=== PATIENT | male | born 1955 | race Caucasian/White ===

== ENCOUNTER → 2019-10-30 | Outpatient (CLI) | payer BC ==
--- NOTE | 2019-10-30 11:16 | DRAGON STRESS TEST REPORT ---
Name: Prieto Sanders : 59 Date: 10/30/19 The patient underwent a stress/rest, single isotope SPECT Imaging with exercise stress and gated SPECT imaging for evaluation of CAD. The patient underwent treadmill exercise using the Don protocol, completing 8:30 minutes and completing an estimated workload of 10.1 metabolic equivalents (METS). The test was terminated due to fatigue. The heart rate was 60 beats per minute at baseline and increased to 150 beats at peak exercise, which was 94% of the maximum predicted heart rate. The rest blood pressure was 127/79 mm/Hg and increased decreased to 188/84 mm/Hg, which is a normal response. The patient complained of no ischemic symptoms during the procedure. The resting electrocardiogram demonstrated NSR with early repol and did not show ST-segment changes consistent with ischemia. Myocardial perfusion imaging was performed at rest following the injection of 10.75mCi of sestamibi. At peak exercise, the patient was injected with 30.9mCi of sestamibi and exercise was continued for minute(s). Gating post-stress tomographic imaging was performed 60 minutes after stress. Findings The overall quality of the study is excellent. Raw images demonstrate no significant artifacts. Left ventricular cavity is noted to be normal on the rest and stress studies. There is no evidence of abnormal lung activity. Resting SPECT images demonstrate homogeneous tracer distribution throughout the myocardium. The stress images reveal homogeneous tracer distribution throughout the myocardium. Gated SPECT imaging reveals normal myocardial thickening and wall motion. The left ventricular ejection fraction was calculated to be 55% Impression -Myocardial perfusion imaging is normal. -There is no scintigraphic evidence of ischemia or infarct. -Overall left ventricular systolic function was normal without wall motion abnormalities. -There are no prior studies for comparison. MTDD
== END ==
LOC: RAD 06:45
PROVIDERS: ATTEND Internal Medicine Cardiovascular Disease
DX: I25.119 Atherosclerotic heart disease of native coronary artery with unspecified angina pectoris (principal)
CPT/HCPCS: 93017; 78452; A9500; Q9969